=== PATIENT | female | born 1980 | race American Indian/Alaskan Native ===

== ENCOUNTER 2022-03-28 10:12 | Emergency (ER) | payer OTHER ==
[2022-03-29 02:29] LABS: Basophils # (Auto) 0.1 K/mm3 (0.0-0.1); Basophils % (Auto) 1.2 % (0.0-1.8); Eosinophils # (Auto) 0.1 K/mm3 (0.0-0.4); Eosinophils % (Auto) 1.3 % (0.0-4.3); Hemoglobin 12.1 gm/dl (10.1-14.3); Lymphocytes # (Auto) 2.6 K/mm3 (1.2-5.4); Lymphocytes % (Auto) 43.6 % (13.4-35.0); Mean Corpuscular HGB Conc 35 % (30-34); Mean Corpuscular Volume 84 fl (79-97); Monocytes # (Auto) 0.5 K/mm3 (0.0-0.8); Monocytes % (Auto) 8.7 % (0.0-7.3); Platelet Count 374 K/mm3 (140-440); Red Blood Count 4.16 M/mm3 (3.65-5.03); Red Cell Distribution Width 13.8 % (13.2-15.2)
[2022-03-29 02:50] LABS: Alanine Aminotransferase 6 units/L (7-56); Albumin 4.1 g/dL (3.9-5); BUN/Creatinine Ratio 15; Blood Urea Nitrogen 15 mg/dL (7-17); Calcium 9.4 mg/dL (8.4-10.2); Hemolysis Index 6
[2022-03-29 03:05] LABS: Bilirubin,Urine NEG (Negative); Blood,Urine MOD (Negative); Color,Urine Yellow (Yellow); Urobilinogen,Urine < 2.0 mg/dL (<2.0)
[2022-03-29 03:10] LABS: Bacteria,Urine 1+ /HPF (Negative); Mucus,Urine FEW /HPF
[2022-03-29 03:12] LABS: Protein,Urine >500 mg/dL (Negative); WBC,Urine > 182.0 /HPF (0.0-6.0)
[2022-03-29] MEDS ORDERED: INSULIN REGULAR, HUMAN 100 UNITS/1 ML IV ONE (07:07)
[2022-03-29] MEDS ORDERED: SODIUM CHLORIDE 0.9% 1000 ML 1,000 ML IV ONE (07:07)
[2022-03-29] MEDS ORDERED: cefTRIAXone/NS 1 GM/50 ML 1 GM/50 ML BAG IV ONE (07:08)
[2022-03-29] MEDS ORDERED: ONDANSETRON 4 MG/2 ML INJ IV ONE (07:08)
--- NOTE | 2022-03-29 07:16 | Emergency Department Report ---
ED N/V/D HPI - General Chief complaint: Nausea/Vomiting/Diarrhea Stated complaint: DEHYDRATION/VOMITTING/BACK PAIN Time Seen by Provider: 03/29/22 07:04 Source: patient Mode of arrival: Ambulatory Limitations: No Limitations - History of Present Illness Initial comments: 41-year-old female presents with nausea and vomiting that has been going on for the last 3 days progressively getting worse. No fever or chills reported. Patient was recently treated for urinary tract infection with pending culture. She says she could not keep any meal or fluid. No other modifying or associated factors reported. - Related Data Previous Rx's Medication Instructions Recorded Last Taken Type Omeprazole Magnesium [PriLOSEC Otc] 20 mg PO QDAY 30 Days #30 tab NS 03/29/22 Unknown Rx Ondansetron [Zofran Odt] 4 mg PO Q8HR 5 Days #15 tab.rapdis 03/29/22 Unknown Rx NS Sulfamethoxazole/Trimethoprim 1 each PO BID 7 Days #14 tab NS 03/29/22 Unknown Rx [Bactrim DS TAB] Allergies Allergy/AdvReac Type Severity Reaction Status Date / Time No Known Allergies Allergy Unverified 03/29/22 01:54 ED Review of Systems ROS: Stated complaint: DEHYDRATION/VOMITTING/BACK PAIN Other details as noted in HPI Comment: All other systems reviewed and negative Gastrointestinal: nausea, vomiting, other (Abdominal cramping). denies: abdominal pain ED Past Medical Hx - Past Medical History Hx Diabetes: Yes - Surgical History Past Surgical History?: Yes Additional Surgical History: - Social History Smoking Status: Never Smoker - Medications Home Medications: Home Medications Medication Instructions Recorded Confirmed Last Taken Type Omeprazole Magnesium [PriLOSEC Otc] 20 mg PO QDAY 30 Days #30 tab NS 03/29/22 Unknown Rx Ondansetron [Zofran Odt] 4 mg PO Q8HR 5 Days #15 tab.rapdis 03/29/22 Unknown Rx NS Sulfamethoxazole/Trimethoprim 1 each PO BID 7 Days #14 tab NS 03/29/22 Unknown Rx [Bactrim DS TAB] ED Physical Exam - General Limitations: No Limitations General appearance: alert, in no apparent distress - ENT ENT exam: Present: normal exam, normal orophraynx, mucous membranes dry - Neck Neck exam: Present: normal inspection - Respiratory Respiratory exam: Present: normal lung sounds bilaterally. Absent: respiratory distress, accessory muscle use - Cardiovascular Cardiovascular Exam: Present: regular rate, normal rhythm, normal heart sounds - GI/Abdominal GI/Abdominal exam: Present: soft, normal bowel sounds. Absent: distended, ten derness - Extremities Exam Extremities exam: Present: normal inspection, normal capillary refill. Absent: tenderness - Back Exam Back exam: Present: normal inspection. Absent: tenderness, CVA tenderness (R), CVA tenderness (L) - Neurological Exam Neurological exam: Present: alert, oriented X3 - Psychiatric Psychiatric exam: Present: normal affect, normal mood - Skin Skin exam: Present: warm, normal color ED Course Vital Signs 03/28/22 03/29/22 03/29/22 10:43 07:26 07:31 Temperature 98.2 F Pulse Rate 97 H 105 H Respiratory 18 15 Rate Blood Pressure 116/79 130/87 O2 Sat by Pulse 100 100 99 Oximetry 03/29/22 03/29/22 03/29/22 07:45 08:01 08:15 Temperature Pulse Rate 103 H 113 H 113 H Respiratory 10 L 20 15 Rate Blood Pressure 130/87 152/96 152/96 O2 Sat by Pulse 97 99 100 Oximetry 03/29/22 03/29/22 03/29/22 08:31 08:45 09:01 Temperature Pulse Rate 103 H 103 H 98 H Respiratory 12 11 L 9 L Rate Blood Pressure 152/96 130/87 126/82 O2 Sat by Pulse 100 100 100 Oximetry 03/29/22 03/29/22 03/29/22 09:15 09:31 09:45 Temperature Pulse Rate 100 H 102 H 105 H Respiratory 13 12 12 Rate Blood Pressure 126/82 126/82 126/82 O2 Sat by Pulse 99 100 96 Oximetry 03/29/22 03/29/22 03/29/22 10:01 10:15 10:31 Temperature Pulse Rate 103 H 108 H 103 H Respiratory 12 11 L 21 Rate Blood Pressure 132/86 132/86 132/86 O2 Sat by Pulse 100 99 99 Oximetry 03/29/22 03/29/22 03/29/22 10:45 11:01 11:15 Temperature Pulse Rate 105 H 101 H Respiratory 13 14 14 Rate Blood Pressure 132/86 103/62 103/62 O2 Sat by Pulse 100 99 100 Oximetry 03/29/22 03/29/22 03/29/22 11:31 11:45 12:01 Temperature Pulse Rate 104 H 104 H 103 H Respiratory 17 12 12 Rate Blood Pressure 103/62 103/62 117/78 O2 Sat by Pulse 99 100 99 Oximetry 03/29/22 12:15 Temperature Pulse Rate 104 H Respiratory 16 Rate Blood Pressure 117/78 O2 Sat by Pulse 97 Oximetry - Reevaluation(s) Reevaluation #1: 03/29/22 07:12 here with nausea and emesis -- with recent treatment with antibiotics this could be side effect of the antibiotics vs worsen uti with ineffective antibiotic for the infection vs GERD or gastroenteritis- will go ahead and hydrate with ivf ns 1L bolus x 1 for hydration, and given Zofran for the nausea, and order CBC, CMP and UA for any infectious process or electrolyte abnormality. Reevaluation #2: 03/29/22 07:16 Pt lab reviewed and noted Urinalysis with large urine leukocytes with lots of wbc so will go ahead and treat for UTI with Rocephin 1g IVPB x 1. Also noted with elevated blood sugar at 246 mg/dl so given insulin 5 units IV x 1 as this could also be contributing to the symptoms. 03/29/22 12:21 Patient reevaluated report feeling much better was able to get up requested for a drink and was able to tolerate without any nausea or vomiting. Lab reviewed to be within normal limits. Patient will be discharged home on Zofran as needed. ED Medical Decision Making - Lab Data Result diagrams: 03/29/22 02:14 03/29/22 02:14 Critical care attestation.: If time is entered above; I have spent that time in minutes in the direct care of this critically ill patient, excluding procedure time. 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 insulin use: unspecified alf insulin use status Qualified Code(s): E11.65 - Type 2 diabetes mellitus with hyperglycemia Disposition: 01 HOME / SELF CARE / HOMELESS Is pt being admited?: No Does the pt Need Aspirin: No Condition: Stable Instructions: Diabetes Mellitus Type 2 in Adults (ED) Additional Instructions: Take and complete your antibiotics as prescribed to help your symptoms Increase your daily fluid to help your hydration Call and schedule follow-up with your primary doctor in the next 3 to 5 days for progress Please do not hesitate to call or return to emergency room if your symptoms worsen Prescriptions: Sulfamethoxazole/Trimethoprim [Bactrim DS TAB] 1 each PO BID 7 Days #14 tab NS Omeprazole Magnesium [PriLOSEC Otc] 20 mg PO QDAY 30 Days #30 tab NS Ondansetron [Zofran Odt] 4 mg PO Q8HR 5 Days #15 tab.rapdis NS
[2022-03-29 12:20] VITALS: BP 117/78
== END 2022-03-29 12:23 | disposition home or self-care (01) ==
LOC: ED 10:12
DX: R11.2 Nausea with vomiting, unspecified (principal); N39.0 Urinary tract infection, site not specified; E11.65 Type 2 diabetes mellitus with hyperglycemia
CPT/HCPCS: 36415; 80053; 81001; 82962; 84702; 85025; 96365; 96375; 99283; J0696; J2405; J7030